=== PATIENT | male | born 1985 | race Caucasian/White ===

== ENCOUNTER 2019-12-16 15:33 | Emergency (ER) | payer BC ==
--- NOTE | 2019-12-16 15:49 | TELE ---
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 He was instructed by his employer that he needs coronavirus testing prior to returning to work. Patient denies fevers, chills, cough, shortness of breath, abdominal pain, anosmia. CONSTITUTIONAL: Absent: fever, chills, diaphoresis, generalized weakness, loss of appetite HEENT: malaise Absent: rhinorrhea, nasal congestion, throat pain, throat swelling, difficulty swallowing, mouth swelling, ear pain, eye pain, visual changes CARDIOVASCULAR: Absent: chest pain, loss of consciousness, palpitations, irregular heart rate, peripheral edema RESPIRATORY: Absent: cough, shortness of breath, dyspnea with exertion, orthopnea, wheezing, stridor, hemoptysis GASTROINTESTINAL: Absent: abdominal pain, abdominal distension, nausea, vomiting, diarrhea SKIN: Absent: rash, itching, pallor NEUROLOGIC: Absent: headache, focal weakness or paresthesias, dizziness, unsteady gait, seizure, mental status changes, bladder or bowel incontinence PSYCHIATRIC: Absent: anxiety, depression, suicidal or homicidal ideation, hallucinations. GENERAL: Well developed, well nourished. Awake and alert. No acute distress. HEENT: Normocephalic, atraumatic. PERRLA, EOMI. NECK: Supple. Full ROM. PULMONARY: No evidence of respiratory distress. EXTREMITIES: No cyanosis. SKIN: Warm and dry. Normal capillary refill. No rashes. No jaundice. NEUROLOGICAL: Alert, awake, appropriate. PSYCHIATRIC: Cooperative. Good eye contact. Appropriate mood and affect. - Medical Decision Making 12/16/19 15:49 A/P: 34-year-old male requesting COVID testing per requirements by his employer COVID-19 testing Patient has been instructed to perform social distancing and isolate himself in his house until results of the COVID testing have returned Discharge Portions of this note have been documented using voice recognition software. As a result, errors may occur in the desk pens assembler process. Effort has been made to correct all grammatical and desk pens assembler error, but some may have been missed which may produce sporadic inaccurate desk pens assembler or nonsensical phrases. Discharge Diagnosis at time of Disposition: Counseled about COVID-19 virus infection - Referrals Follow-up Referral(s): Duy Quinteros MD [Primary Care Provider] - - Patient Instructions Additional Discharge Instructions: You were tested for COVID today. Please isolate yourself until your test results come back. Guidance has been provided in your discharge papers You should receive a call within 24 to 48 hours from our department with your results. Thank you for using our telehealth service today! - Discharge Disposition: HOME Condition at time of Disposition: Stable
--- OUTSIDE RECORDS SUMMARY | 2019-12-16 16:01 | XMS ---
:1985 Author Organization [facility] Re-disclosure Warning The records that you are about to access may contain information from federally- assisted alcohol or drug abuse programs. If such information is present, then the following federally mandated warning applies: This information has been disclosed to you from records protected by federal confidentiality rules (42 CFR part 2). The federal rules prohibit you from making any further disclosure of this information unless further disclosure is expressly permitted by the written consent of the person to whom it pertains or as otherwise permitted by 42 CFR part 2. A general authorization for the release of medical or other information is NOT sufficient for this purpose. The Federal rules restrict any use of the information to criminally investigate or prosecute any alcohol or drug abuse patient.The records that you are about to access may contain highly sensitive health information, the redisclosure of which is protected by Article 27-F of the [facility] Public Health law. If you continue you may haveaccess to information: Regarding HIV / AIDS; Provided by facilities licensed or operated by the [facility] Office of Mental Health; or Provided by the [facility] Office for People With Developmental Disabilities. If such information is present, then the following [facility] mandated warning applies: This information has been disclosed to you from confidential records which are protected by state law. State law prohibits you from making any further disclosure of this information without the specific written consent of the person to whom it pertains, or as otherwise permitted by law. Any unauthorized further disclosure in violation of state law may result in a fine or fdc sentence or both. A general authorization for the release of medical or other information is NOT sufficient authorization for further disclosure. Insurance Providers Payer name Policy type Policy ID Covered Covered libertarian's Policy P sundeep / Coverage libertarian ID relationship to Diallo Inf ormation type diallo E[employer] PLAN [id number] 1 [id number] ([facility])
== END 2019-12-16 15:50 | disposition home or self-care (01) ==
LOC: JVIRT 15:33
DX: Z11.59 Encounter for screening for other viral diseases (principal)
CPT/HCPCS: Q3014-GT; U0003